=== PATIENT | female | born 1995 | race Caucasian/White ===

== ENCOUNTER 2021-03-11 13:16 | Emergency (ER) | payer MEDICAID, SELFPAY ==
[2021-03-11 13:22] VITALS: BP 143/95; PULSE 98; RESP 16; TEMP 37.1; O2SAT 98
--- NOTE | 2021-03-11 15:43 | ED_ITS ---
HPI - Headache General: Chief Complaint: Headache Stated Complaint: H/A Time Seen by Provider: 03/11/21 14:08 History of Present Illness: HPI Narrative: Patient is a 26-year-old female comes to the ED with neck pain and headache. Patient says yesterday she was in her shower and when she finished she was going to dry her hair and she whipped her head back and she felt pain in her neck. She also noted that denies any neurological symptoms. She had a little bit of light yellow fluid that discharge out of her nose after she hurt her neck. This morning she woke up and she had a mild headache that she currently rates around a 3 out of 10. Denies any other complaints. Associated symptoms: Deny chest pain, fever(s), nausea, rash or vomiting Review of Systems Const: Denies: fever(s), chills or fatigue Eyes: Denies: change in vision or eye discomfort ENMT: Denies: throat pain, odynophagia, nasal discharge or nasal congestion Card: Denies: chest pain, palpitations, edema, swelling of feet/ankles, dyspnea on exertion or orthopnea Resp: Denies: dyspnea, productive cough or non-productive cough GI: Denies: abdominal pain, nausea, vomiting, diarrhea, constipation or hematochezia : Denies: flank pain, dysuria or hematuria Musc: Reports: neck pain; Denies: back pain or extremity swelling Skin/Breast: Denies: rash or new lesions Neuro: Reports: headache(s); Denies: numbness in extremities or weakness in extremities Physical Exam Const: COMMON NORMALS: no acute distress, patient oriented x3, healthy appearing and alert GENERAL APPEARANCE: cooperative and comfortable HENMT: COMMON NORMALS: normocephalic HEAD & SCALP: normocephalic MOUTH: Normal oral and palatal mucosa present THROAT: posterior oropharynx normal and uvula midline Eye: COMMON NORMALS: Equal, round and reactive pupils present and EOMs intact bilaterally PUPIL: Yes Equal, round and reactive pupils present Neck/C-Spine: COMMON NORMALS: supple GENERAL: Yes normal visual inspection CERVICAL SPINE: No Cervical spine tenderness, Yes Paracervical muscle tenderness right and Yes Trapezius muscle tenderness right Resp: COMMON NORMALS: normal respiratory effort, No retractions, No use of accessory muscles and clear to auscultation bilaterally AUSCULTATION: clear to auscultation bilaterally Cardio: COMMON NORMALS: regular rate, regular rhythm, S1 normal heart sound present, S2 normal heart sound present, No gallops present (Cardio), No clicks present (Cardio), No murmurs present (Cardio) and Peripheral pulses 2+ throughout RATE: regular rate RHYTHM: regular rhythm HEART SOUNDS: S1 normal heart sound present and S2 normal heart sound present PERIPHERAL PULSES: Peripheral pulses 2+ throughout GI: COMMON NORMALS: Normal to inspection, nondistended, normoactive bowel sounds present, Soft to palpation, non-tender and no masses PALPATION: Yes Soft to palpation : COMMON NORMALS: Yes no CVA tenderness BLADDER/KIDNEY EXAM: Yes no CVA tenderness Back/Pelvis: COMMON NORMALS: no CVA tenderness Extremity: COMMON NORMALS: normal to inspection Neuro: COMMON NORMALS: patient oriented x3, CN's II-XII intact bilaterally, moves all extremities and no focal motor deficits SENSORIUM/ORIENTATION: Yes alert SENSORY EXAM: Yes extremities (intact) MOTOR EXAM: 5/5 motor strength present throughout Skin: GENERAL SKIN EXAM: dry skin Course Vital Signs: Vital signs: Vital Signs Temperature 98.7 F 03/11/21 13:22 Pulse Rate 98 03/11/21 13:22 Respiratory Rate 16 03/11/21 13:22 Blood Pressure 143/95 03/11/21 13:22 Pulse Oximetry 98 03/11/21 13:22 MDM - Headache MDM Narrative: Medical decision making narrative: Patient is a 26-year-old female comes to the ED with neck pain and headache. Patient says yesterday she was in her shower and when she finished she was going to dry her hair and she whipped her head back and she felt pain in her neck. Headache is mild and she rates it a 3 out of 10. Denies any neurological symptoms. Vitals stable. neuro exam showed no deficits. Patient appears healthy and in no acute distress or pain. She does have a little bit of right paracervical muscle tenderness along with right trapezius muscle tenderness. Rest of exam is benign. Patient was diagnosed with tension headache and neck muscle strain and discharged home. She was told apply cold pack on her neck and take [id number] ibuprofen or Tylenol for pain. Follow-up with her PCP in 7 to 10 days for reevaluation. Return ED precautions given. Patient understood agree with plan. Discharge Plan Discharge Patient Disposition: Home Clinical Impression: Tension headache Neck muscle strain Qualifiers: Encounter type: initial encounter Qualified Code(s): S16.1XXA - Strain of muscle, fascia and tendon at neck level, initial encounter Condition: Stable Discharge Orders: Discharge ED (Routine); Ordered 03/11/21 Ordered By: Gregg Moise Discharge Diet: Regular Discharge Activity: Resume usual activity Patient Instructions: Tension Headache (ED) Activity Restrictions/Additional Instructions: Follow-up with medical provider as directed in 7 to 10 days reevaluation. Take [id number] Tylenol or ibuprofen for any headaches. You can apply cold pack on your neck to help with symptoms. Return to the ER or your medical p rovider if condition worsens. Please read and understand discharge instructions. Thank you for choosing [facility] for your healthcare needs today. Please realize this is an emergency room and that we are providing you with a medical screening exam and this may not be complete and all inclusive of all the testing and or work up that you may need to determine your ailment or severity of your illness. It is very important that you follow up as instructed or that you return to the Emergency Department should you have concerns or if your condition changes or worsens in any way. Coding Level of Care Code ED Engineering Administrator for Edson Kidd Exam Comprehensive
== END 2021-03-11 16:30 | disposition home or self-care (01) ==
PROVIDERS: Emergency Provider Physician Assistant
DX: G44.209 Tension-type headache, unspecified, not intractable (principal); S16.1XXA Strain of muscle, fascia and tendon at neck level, initial encounter; X58.XXXA Exposure to other specified factors, initial encounter
CPT/HCPCS: 99282